=== PATIENT | female | born 1965 | race Caucasian/White ===

== ENCOUNTER → 2017-01-23 | Day surgery (SDC) | payer OTHER ==
[~2017-01-23] VITALS: Ht 154.9 cm; Wt 110.1 kg
[~2017-01-23] MED LIST: *MEPERIDINE 25 MG INJ VIAL PERIprocedural Use ONLY ONE; ACETAMINOPHEN 1000 MG/100 ML VIAL IV ONE; ADVA250A INH; BUPIVACAINE HCL PF 0.5% 30 ML VIAL ONE; CHLORHEXIDINE GLUCONATE 2 % 1 PACK (2 CLOTHS) TOPICAL PRN; DO NOT ADM ANY ANTICOAGULANT DRUGS PRN; FAMOTIDINE 20 MG/2 ML VIAL ONE; INSULIN HUMAN REGULAR 1,000 UNITS/10 ML VIAL SQ PRN; KETOROLAC TROMETHAMINE 60 MG/2 ML (IM) VIAL IM ONE; LACTATED RINGER'S 1000 ML INJ 2,000 ML IV ONE; LACTATED RINGER'S 1000 ML IV PRN; METHYLENE BLUE 10 MG/ML VIAL IV ONE; METOPROLOL TARTRATE 25 MG TAB PO PRN; MIDAZOLAM HCL 2 MG/2 ML VIAL ONE; NEOSTIGMINE 3 MG/3 ML SYR IV ONE; NON-FORMULARY DRUG IM PRN; ONDANSETRON HCL 4 MG/2 ML VIAL IV PUSH ONE; ONDANSETRON HCL 4 MG/2 ML VIAL ONE; POVIDONE IODINE 5% (ANTISEPSIS KIT) 4 APPLICATIONS EACH NARE PRN; PROPOFOL 200 MG/20 ML AMP IV ONE; RESP: ALBUTEROL 2.5 MG/3 ML NEB (SCH) ONE; SODIUM CHLORID 0.9% 500 ML IV PRN; ceFAZolin 2 GM PREMIX 50 ML IV SCH; ceFAZolin 2 GM PREMIX 50 ML ONE; fentaNYL CITRATE 250 MCG/5 ML AMP ONE; oxyCODONE/ACETAMINOPHEN 5 MG/325 MG TAB PO PRN
--- NOTE | 2017-01-23 07:39 | PD.OP ---
Operative Report Date of Surgery: Jan 23, 2017 Preoperative Diagnosis: (1) Excessive and frequent menstruation with irregular cycle (2) Intramural leiomyoma of uterus (3) Primary dysmenorrhea (4) Pelvic and perineal pain Postoperative Diagnosis: (1) Excessive and frequent menstruation with irregular cycle (2) Intramural leiomyoma of uterus (3) Primary dysmenorrhea (4) Pelvic and perineal pain (5) Peritoneal adhesions (postoperative) (postinfection) Procedure: 1. laparoscopic supracervical hysterectomy 2. bilateral salpingo-oophorectomy 3. lysis of adhesions Anesthesia: General Surgeon: Archana Chavarria Rn Internal Medicine(s): OR staff Operation and Findings: IVF: 2 liters of LR + IV antibiotic given prior to surgery + Methylene blue given during surgery UO: 250 ml EBL: 250 ml Findings: 1. extensive peritoneal adhesions involving omentum + anterior abdominal wall and both adnexa + large bowel 2. enlarged uterus 3. multiple small ovarian cysts in both ovaries Specimens: Complications: Condition: Disposition: PACU Descriptions of the procedure: I discussed the risks, benefits and alternatives of the procedure with the patient. Informed consent was obtained after questions were answered. She was then taken to the operating room with her IV running. She was placed in the supine position and was given general anesthesia without difficulties or complications. She was then placed in the dorsal lithotomy position and was prepped and draped in the usual sterile fashion. Attention was first turned to the patient's genital area. A bivalved speculum was introduced inside the patient's vagina. The anterior aspect of the cervix was grasped with a single tooth tenaculum for manipulation. The cervix was carefully dilated and electrocauterized with the Bovie. A uterine manipulator was carefully introduced inside her uterus. The rest of the instruments were removed from the patient's vagina. A sterile blue towel was used to cover the perineum. The surgeon changed gloves and attention was then turned to the patient's abdomen. A vertical umbilical incision was made with the scalpel. A 5 mm trocar was introduced inside the patient's abdomen under direct visualization. A pneumo -peritoneum was created with CO2 gas. Extensive adhesions involving the omentum , large bowel, adnexa, and anterior abdominal wall. Two 5 mm trocars and one 10 mm trocar were introduced inside the patient's abdomen under direct visualization in the lower right, and mid abdomen. Lysis of adhesions was needed to be able to proceed with the surgery. A survey of the patient's abdomen revealed an enlarged fatty liver. A survey of the patient's pelvis revealed the findings noted above. The round ligaments and the infundibulopelvic ligaments were carefully and serially grasped, electrocauterized and cut with the Harmonic scalpel. Excellent hemostasis was noted. The tissues along the uterus on both sides were serially grasped, electrocauterized and transected with the Harmonic scalpel. The ureters were noted to be away from the surgical site. The uterine vessels were skeletonized, electrocauterized with the Kleppinger and transected with the Harmonic scalpel. Good hemostasis was noted. Next, the bladder flap was created and the bladder was dissected off the lower uterine segment. Excellent hemostasis was noted. The uterine manipulator was removed. Mary Kate loop was used to cut and electrocauterize the cervico-uterine junction. Good hemostasis was noted. The Kleppinger was used to electrocauterized the endocervix. The morcellator was introduced inside the abdomen under direct visualization and was used to cut the uterus and adnexa. Tissue was carefully removed and sent to Pathology. The surgical sites were noted to be hemostatic. Copious irrigation was done. Care was taken to ensure the removal of all small pieces of tissue which were left in the abdomen and pelvis after morcellation. Methylene blue was given at the beginning of the surgical procedure. The ureters were identified again and were found to be away from the surgical sites. There was no evidence of injury or blockage of the ureters or bladder. Interseed was placed over the surgical site. All of the instruments were removed from the patient's abdomen. The ports were also removed under direct visualization. Excellent hemostasis was noted. The CO2 gas was carefully expressed out of the patient's abdomen. The 10 mm fascial incision was reapproximated with a figure eight stitch of 0-Vicryl. The skin incisions were injected with 0.5 % Marcaine and were reapproximated with subcutaneous stitches of 4-0 Vicryl. Mastisol and steri strips were placed over the incisions. The patient tolerated the procedure well. She was successfully extubated and transferred to PACU in stable condition. Note: I discussed surgical procedures and surgical findings with patient's mother and aunt. Their questions were answered. They verbalized understanding. Archana Chavarria MD Jan 23, 2017 07:39
[2017-01-23 10:00] VITALS: BP 149/86; PULSE 95; RESP 18; TEMP 98.1; O2SAT 98
[2017-01-23 17:40] VITALS: BP 159/83; PULSE 89; RESP 18; TEMP 97.5; O2SAT 98
== END | disposition home or self-care (01) ==
LOC: HSDC 09:21
PROVIDERS: ATTEND Obstetrics & Gynecology
DX: N92.1 Excessive and frequent menstruation with irregular cycle (principal); D25.1 Intramural leiomyoma of uterus; N94.6 Dysmenorrhea, unspecified; R10.2 Pelvic and perineal pain; K66.0 Peritoneal adhesions (postprocedural) (postinfection)
CPT/HCPCS: 00840; 58542; 86850; 86900; 86901; 88307; 94664; C1765; J0131; J0690; J1885; J2175; J2250; J2405; J2710; J3010; J7120; J7613